=== PATIENT | male | born 1940 | race Caucasian/White ===

== ENCOUNTER 2018-04-21 15:08 | Observation (INO) ==
[2018-04-21] MEDS ORDERED: MORPHINE 4 MG/1 ML VIAL IV PRN (15:36)
[2018-04-21] MEDS ORDERED: NITROGLYCERIN 2% OINT 1 INCH/GM PACK TOP STA (15:36)
[2018-04-21] MEDS ORDERED: ASPIRIN 325 MG TABLET PO STA (15:36)
[2018-04-21] MEDS ORDERED: ONDANSETRON 4 MG/2 ML VIAL IV PRN ×2 (15:36→19:57)
[2018-04-21] MEDS ORDERED: ENOXAPARIN 100 MG/ML SYRINGE SUBCUT STA (15:36)
[2018-04-21 16:03] LABS: Basophils # 0.1 10*3/uL (0.0-0.2); Basophils % 0.8 % (0.0-0.8); Eosinophils # 0.4 10*3/uL (0.0-0.87); Eosinophils % 5.1 % (0.00-10.9); Hematocrit 42.5 VOL% (42.0-52.0); Hemoglobin 13.9 GM/DL (14.0-18.0); Immature Granulocytes % 0.8 %; Immature Granulocytes Absolute 0.06 #; Lymphocytes # 1.5 10*3/uL (1.4-4.0); Lymphocytes % 21.1 % (21.2-54.2); Mean Corpuscular HGB Conc 32.7 GM/DL (32-36); Mean Corpuscular Hemoglobin 29 PG (27-34); Mean Corpuscular Volume 87.1 FL (87-102); Monocytes # 0.7 10*3/uL (0.11-0.8); Monocytes % 9.3 % (1.7-12.7); Neutrophils # 4.4 10*3/uL (1.4-7.4); Neutrophils % 62.9 % (38.7-73.9); Platelet Count 202 T/CUMM (130-400); Red Blood Count 4.88 MC/CUMM (3.8-5.5); Red Cell Distribution Width 13.6 % (9.3-17.3); White Blood Count 7.1 T/CUMM (4-12)
[2018-04-21 16:17] LABS: PT Patient Result 10.7 SECS; Partial Thromboplastin Time 25.3 SECS (0-40)
[2018-04-21 16:34] LABS: Albumin 3.3 G/DL (3.4-5.0); Bilirubin,Total 0.4 MG/DL (0.2-1.0); Calcium 9.5 MG/DL (8.5-10.1); Osmolality,Calculated 286.1 MOS/KG (273-304); Potassium 4.4 MMOL/L (3.5-5.1); Total Protein 6.6 G/DL (6.4-8.3)
[2018-04-21] MEDS ORDERED: DEXTROSE 50% 25 GM/50 ML VIAL IV PRN (19:57)
[2018-04-21] MEDS ORDERED: GLUCAGON 1 MG VIAL IM PRN (19:57)
[2018-04-21] MEDS ORDERED: ACETAMINOPHEN 325 MG TABLET PO PRN (19:57)
[2018-04-21] MEDS: SODIUM CHLORIDE 0.9% 1,000 ML IV SCH (22:04)
[2018-04-21] MEDS: DOCUSATE SODIUM 100 MG CAPSULE PO SCH (22:04)
[2018-04-21] MEDS: INSULIN REGULAR 100 UNIT/ML SUBCUT SCH (22:04)
[2018-04-22] MEDS: SODIUM CHLORIDE 0.9% 1,000 ML IV SCH ×2 (04:38→06:08)
[2018-04-22] MEDS: PANTOPRAZOLE 40 MG TABLET PO SCH (09:44)
[2018-04-22] MEDS: CARVEDILOL 3.125 MG TABLET PO SCH ×2 (09:44→20:17)
[2018-04-22] MEDS: DOCUSATE SODIUM 100 MG CAPSULE PO SCH ×2 (09:44→20:17)
[2018-04-22] MEDS: INSULIN REGULAR 100 UNIT/ML SUBCUT SCH ×4 (09:45→20:18)
[2018-04-22] MEDS: glipiZIDE 10 MG TABLET PO SCH ×2 (09:45→20:18)
[2018-04-22 10:46] LABS: Risk Ratio 3.81; VLDL CHOLESTEROL 27.8 MG/DL
[2018-04-22] MEDS: NITROGLYCERIN 2% OINT 1 INCH/GM PACK TOP SCH ×3 (11:53→23:57)
[2018-04-22] MEDS ORDERED: diphenhydrAMINE CAP 50 MG CAPSULE PO ONE (13:48)
[2018-04-22] MEDS ORDERED: DIAZEPAM 5 MG TABLET PO ONE (13:48)
[2018-04-22] MEDS ORDERED: POTASSIUM CHLORIDE RIDER 10 MEQ in PREMIX 1 EACH IV PRN (14:25)
[2018-04-22] MEDS ORDERED: MAGNESIUM SULF RIDER 2 GM in PREMIX 1 EACH IV PRN (14:25)
[2018-04-22] MEDS ORDERED: LIDOCAINE 1% 20 ML VIAL ONE (16:24)
[2018-04-22] MEDS ORDERED: MIDAZOLAM 2 MG/2 ML VIAL ONE (17:44)
[2018-04-22] MEDS ORDERED: fentaNYL 100 MCG/2 ML VIAL ONE (17:44)
[2018-04-22] MEDS ORDERED: HEPARIN 5,000 UNIT/1 ML VIAL ONE (17:51)
[2018-04-22] MEDS ORDERED: ADENOSINE 90 MG/30 ML VIAL IV ONE (18:05)
[2018-04-22] MEDS ORDERED: ZALEPLON 5 MG CAPSULE PO PRN (18:49)
[2018-04-22] MEDS: ACETAMINOPHEN 325 MG TABLET PO SCH ×2 (20:17→20:19)
[2018-04-22] MEDS: GABAPENTIN 100 MG CAPSULE PO SCH ×3 (20:17→20:22)
[2018-04-22] MEDS: traMADol 50 MG TABLET PO SCH ×2 (20:18→20:19)
[2018-04-22] MEDS ORDERED: QUINAPRIL 5 MG TABLET PO SCH (21:00)
[2018-04-22] MEDS ORDERED: ASPIRIN EC 325 MG TABLET PO SCH (21:00)
[2018-04-22] MEDS ORDERED: SIMVASTATIN 20 MG TABLET PO SCH (21:00)
[2018-04-23 05:54] LABS: Calcium 8.7 MG/DL (8.5-10.1); Osmolality,Calculated 280.3 MOS/KG (273-304); Potassium 4.3 MMOL/L (3.5-5.1)
[2018-04-23] MEDS: NITROGLYCERIN 2% OINT 1 INCH/GM PACK TOP SCH (06:16)
[2018-04-23] MEDS: INSULIN REGULAR 100 UNIT/ML SUBCUT SCH ×2 (08:43→12:49)
[2018-04-23] MEDS: glipiZIDE 10 MG TABLET PO SCH (10:28)
[2018-04-23] MEDS: GABAPENTIN 100 MG CAPSULE PO SCH (10:28)
[2018-04-23] MEDS: DOCUSATE SODIUM 100 MG CAPSULE PO SCH (10:28)
[2018-04-23] MEDS: PANTOPRAZOLE 40 MG TABLET PO SCH (10:28)
[2018-04-23] MEDS: traMADol 50 MG TABLET PO SCH (10:29)
[2018-04-23] MEDS: CARVEDILOL 3.125 MG TABLET PO SCH (10:29)
[2018-04-23] MEDS: ACETAMINOPHEN 325 MG TABLET PO SCH (10:29)
[2018-04-23] MEDS ORDERED: SIMVASTATIN 20 MG TABLET PO SCH (11:55)
[2018-04-23 12:05] VITALS: BP 121/66
== END 2018-04-23 13:10 | disposition home or self-care (01) ==
LOC: N.ED 15:08 → N.EDINP 15:08 → N.TELEN 22:09
PROVIDERS: ADMIT Family Medicine; ATTEND Family Medicine
PROC: CLCCHCL (ICD-10-PCS; 2018-04-22 15:15)

== ENCOUNTER 2019-02-24 15:01 | Inpatient (IN) ==
[2019-02-24] MEDS ORDERED: HYDROmorphone 2 MG/1 ML VIAL IV STA (15:25)
[2019-02-24] MEDS ORDERED: ONDANSETRON 4 MG/2 ML VIAL IV STA (15:25)
[2019-02-24 15:33] LABS: Basophils # 0.1 10*3/uL (0.0-0.2); Basophils % 1.1 % (0.0-0.8); Eosinophils # 0.4 10*3/uL (0.0-0.87); Eosinophils % 6.7 % (0.00-10.9); Hematocrit 45.5 VOL% (42.0-52.0); Hemoglobin 14.5 GM/DL (14.0-18.0); Immature Granulocytes % 1.2 %; Immature Granulocytes Absolute 0.08 #; Lymphocytes # 1.3 10*3/uL (1.4-4.0); Lymphocytes % 19.3 % (21.2-54.2); Mean Corpuscular HGB Conc 31.9 GM/DL (32-36); Mean Platelet Volume 10.4 FL (9.6-12.0); Monocytes % 10.9 % (1.7-12.7); Neutrophils % 60.8 % (38.7-73.9); Platelet Count 220 T/CUMM (130-400); Red Blood Count 5.23 MC/CUMM (3.8-5.5); Red Cell Distribution Width 13.2 % (9.3-17.3); White Blood Count 6.5 T/CUMM (4-12)
[2019-02-24 15:56] LABS: Albumin 3.8 G/DL (3.4-5.0); Bilirubin,Total 0.5 MG/DL (0.2-1.0); Calcium 9.1 MG/DL (8.5-10.1); Osmolality,Calculated 288.1 MOS/KG (273-304); Total Protein 6.9 G/DL (6.4-8.3)
[2019-02-24 17:22] LABS: Apearance,Urine CLEAR (Clear); Bilirubin,Urine Negative (Negative); Blood, Urine Negative (Negative); Glucose,Urine (UA) Negative (Negative); Ketones,Urine Negative (Negative); Mucus,Urine Occasional /LPF (Occasional); Nitrite,Urine Negative (Negative); Protein,Urine Negative; RBC,Urine <1 /HPF (0-4); Urine Color Yellow (Yellow); Urine Specific Gravity 1.054 (1.001-1.035); Urine Urobilinogen < 2.0 EU/DL (0.2-1.0); WBC,Urine 1 /HPF (0-6)
[2019-02-24] MEDS ORDERED: GLUCAGON 1 MG VIAL IM PRN (19:56)
[2019-02-24] MEDS ORDERED: DEXTROSE 50% 25 GM/50 ML VIAL IV PRN (19:56)
[2019-02-24] MEDS ORDERED: ACETAMINOPHEN 325 MG TABLET PO PRN (19:56)
[2019-02-24] MEDS ORDERED: ONDANSETRON 4 MG/2 ML VIAL IV PRN (19:56)
[2019-02-24] MEDS ORDERED: MORPHINE 4 MG/1 ML VIAL IV PRN (19:56)
[2019-02-24] MEDS ORDERED: ENOXAPARIN 40 MG/0.4 ML SYRINGE SUBCUT SCH (21:00)
[2019-02-24] MEDS ORDERED: ASPIRIN EC 81 MG TABLET PO SCH (21:00)
[2019-02-24 22:00] LABS: Troponin I 12.7 NG/ML (0.00-0.045)
[2019-02-24] MEDS: metFORMIN 500 MG TABLET PO SCH (22:17)
[2019-02-24] MEDS: DOCUSATE SODIUM 100 MG CAPSULE PO SCH (22:17)
[2019-02-24] MEDS: QUINAPRIL 5 MG TABLET PO SCH (22:17)
[2019-02-24] MEDS: CARVEDILOL 3.125 MG TABLET PO SCH (22:17)
[2019-02-24] MEDS: SIMVASTATIN 20 MG TABLET PO SCH (22:18)
[2019-02-24] MEDS ORDERED: ENOXAPARIN 100 MG/ML SYRINGE SUBCUT SCH (22:30)
[2019-02-24] MEDS: INSULIN REGULAR 100 UNIT/ML SUBCUT SCH (23:16)
[2019-02-24] MEDS ORDERED: ASPIRIN CHEW 81 MG TABLET PO ONE (23:21)
[2019-02-25] MEDS: NITROGLYCERIN 2% OINT 1 INCH/GM PACK TOP SCH ×5 (00:13→18:36)
[2019-02-25] MEDS: INSULIN REGULAR 100 UNIT/ML SUBCUT SCH ×4 (01:52→18:36)
[2019-02-25] MEDS: SODIUM CHLORIDE 0.9% 1,000 ML IV SCH ×5 (03:30→23:23)
[2019-02-25 04:58] LABS: Basophils # 0.1 10*3/uL (0.0-0.2); Eosinophils # 0.4 10*3/uL (0.0-0.87); Eosinophils % 5.5 % (0.00-10.9); Hematocrit 41.3 VOL% (42.0-52.0); Hemoglobin 12.9 GM/DL (14.0-18.0); Immature Granulocytes % 1.4 %; Immature Granulocytes Absolute 0.11 #; Lymphocytes # 1.4 10*3/uL (1.4-4.0); Lymphocytes % 18.1 % (21.2-54.2); Mean Corpuscular HGB Conc 31.2 GM/DL (32-36); Mean Corpuscular Volume 88.2 FL (87-102); Mean Platelet Volume 10.9 FL (9.6-12.0); Monocytes % 11.1 % (1.7-12.7); Neutrophils % 62.9 % (38.7-73.9); Platelet Count 206 T/CUMM (130-400); Red Blood Count 4.68 MC/CUMM (3.8-5.5); Red Cell Distribution Width 13.2 % (9.3-17.3); White Blood Count 7.8 T/CUMM (4-12)
[2019-02-25 05:34] LABS: Albumin 3.3 G/DL (3.4-5.0); Bilirubin,Total 0.5 MG/DL (0.2-1.0); Calcium 8.8 MG/DL (8.5-10.1); Risk Ratio 4.7; Total Protein 6.3 G/DL (6.4-8.3); VLDL CHOLESTEROL 34.6 MG/DL
[2019-02-25] MEDS ORDERED: TIROFIBAN IV ONE (07:47)
[2019-02-25 08:09] LABS: CKMB % 5.9 %
[2019-02-25 08:11] LABS: Troponin I 58.7 NG/ML (0.00-0.045)
[2019-02-25] MEDS ORDERED: diphenhydrAMINE CAP 25 MG CAPSULE PO ONE (08:26)
[2019-02-25] MEDS ORDERED: POTASSIUM CHLORIDE RIDER 10 MEQ in PREMIX 1 EACH IV PRN (08:26)
[2019-02-25] MEDS ORDERED: MAGNESIUM SULF RIDER 2 GM in PREMIX 1 EACH IV PRN (08:26)
[2019-02-25] MEDS ORDERED: DIAZEPAM 5 MG TABLET PO ONE (08:26)
[2019-02-25] MEDS ORDERED: TIROFIBAN 5,000 MCG/100 ML PREMIX IV SCH (08:30)
[2019-02-25] MEDS ORDERED: ASPIRIN CHEW 81 MG TABLET PO ONE (09:05)
[2019-02-25] MEDS: DOCUSATE SODIUM 100 MG CAPSULE PO SCH ×2 (09:36→23:21)
[2019-02-25] MEDS: CARVEDILOL 3.125 MG TABLET PO SCH ×2 (09:37→23:22)
[2019-02-25] MEDS: PANTOPRAZOLE 40 MG TABLET PO SCH (09:37)
[2019-02-25] MEDS: metFORMIN 500 MG TABLET PO SCH (09:52)
[2019-02-25] MEDS ORDERED: LIDOCAINE 1% 20 ML VIAL ONE (10:36)
[2019-02-25] MEDS ORDERED: fentaNYL 100 MCG/2 ML VIAL ONE (10:50)
[2019-02-25] MEDS ORDERED: MIDAZOLAM 2 MG/2 ML VIAL ONE (10:50)
[2019-02-25] MEDS ORDERED: HEPARIN 5,000 UNIT/1 ML VIAL ONE (11:09)
[2019-02-25] MEDS ORDERED: HYDROmorphone 2 MG/1 ML VIAL ONE (11:31)
[2019-02-25] MEDS ORDERED: TICAGRELOR 90 MG TABLET ONE (11:47)
[2019-02-25] MEDS ORDERED: GLUCAGON 1 MG VIAL IM PRN (13:20)
[2019-02-25] MEDS ORDERED: DEXTROSE 50% 25 GM/50 ML VIAL IV PRN (13:20)
[2019-02-25 13:49] LABS: CKMB % 5.1 %
[2019-02-25 13:50] LABS: Troponin I 54.8 NG/ML (0.00-0.045)
[2019-02-25] MEDS ORDERED: diphenhydrAMINE 50 MG/1 ML VIAL IV PRN (16:47)
[2019-02-25] MEDS: HYDROmorphone 2 MG/1 ML VIAL IV PRN ×2 (17:11→22:43)
[2019-02-25] MEDS ORDERED: GABAPENTIN 100 MG CAPSULE PO SCH (17:30)
[2019-02-25] MEDS: ACETAMINOPHEN 325 MG TABLET PO SCH ×2 (17:43→23:22)
[2019-02-25 21:08] LABS: CKMB % 3.8 %
[2019-02-25 21:09] LABS: Troponin I 26.6 NG/ML (0.00-0.045)
[2019-02-25] MEDS: TICAGRELOR 90 MG TABLET PO SCH (21:16)
[2019-02-25] MEDS: QUINAPRIL 5 MG TABLET PO SCH (23:21)
[2019-02-25] MEDS: SIMVASTATIN 20 MG TABLET PO SCH (23:23)
[2019-02-26] MEDS: NITROGLYCERIN 2% OINT 1 INCH/GM PACK TOP SCH ×3 (02:23→12:14)
[2019-02-26 05:24] LABS: Basophils % 0.7 % (0.0-0.8); Eosinophils # 0.3 10*3/uL (0.0-0.87); Eosinophils % 4.1 % (0.00-10.9); Hematocrit 38.9 VOL% (42.0-52.0); Hemoglobin 12.3 GM/DL (14.0-18.0); Immature Granulocytes Absolute 0.06 #; Lymphocytes # 0.6 10*3/uL (1.4-4.0); Lymphocytes % 10.3 % (21.2-54.2); Mean Corpuscular HGB Conc 31.6 GM/DL (32-36); Mean Platelet Volume 10.8 FL (9.6-12.0); Monocytes % 8.4 % (1.7-12.7); Neutrophils % 75.5 % (38.7-73.9); Platelet Count 180 T/CUMM (130-400); Red Blood Count 4.47 MC/CUMM (3.8-5.5); Red Cell Distribution Width 13.2 % (9.3-17.3); White Blood Count 6.1 T/CUMM (4-12)
[2019-02-26] MEDS: INSULIN REGULAR 100 UNIT/ML SUBCUT SCH ×4 (05:28→18:05)
[2019-02-26] MEDS: HYDROmorphone 2 MG/1 ML VIAL IV PRN (05:31)
[2019-02-26 05:46] LABS: Calcium 8.2 MG/DL (8.5-10.1); Osmolality,Calculated 280.4 MOS/KG (273-304)
[2019-02-26 05:51] LABS: CKMB % 2.9 %
[2019-02-26] MEDS: PANTOPRAZOLE 40 MG TABLET PO SCH (09:25)
[2019-02-26] MEDS: ASPIRIN CHEW 81 MG TABLET PO SCH (09:25)
[2019-02-26] MEDS: TICAGRELOR 90 MG TABLET PO SCH ×2 (09:25→21:32)
[2019-02-26] MEDS: DOCUSATE SODIUM 100 MG CAPSULE PO SCH ×2 (09:25→21:32)
[2019-02-26] MEDS: ACETAMINOPHEN 325 MG TABLET PO SCH ×2 (09:26→21:34)
[2019-02-26] MEDS: CARVEDILOL 3.125 MG TABLET PO SCH ×2 (09:26→21:33)
[2019-02-26] MEDS: QUINAPRIL 5 MG TABLET PO SCH (21:31)
[2019-02-26] MEDS: SIMVASTATIN 20 MG TABLET PO SCH (21:33)
[2019-02-27] MEDS: INSULIN REGULAR 100 UNIT/ML SUBCUT SCH ×2 (00:51→05:35)
[2019-02-27 08:36] VITALS: BP 132/63
[2019-02-27] MEDS: ASPIRIN CHEW 81 MG TABLET PO SCH (09:08)
[2019-02-27] MEDS: TICAGRELOR 90 MG TABLET PO SCH (09:08)
[2019-02-27] MEDS: DOCUSATE SODIUM 100 MG CAPSULE PO SCH (09:10)
[2019-02-27] MEDS: PANTOPRAZOLE 40 MG TABLET PO SCH (09:10)
[2019-02-27] MEDS: ACETAMINOPHEN 325 MG TABLET PO SCH (09:10)
[2019-02-27] MEDS: CARVEDILOL 3.125 MG TABLET PO SCH (09:10)
== END 2019-02-27 10:58 | disposition home or self-care (01) | DRG 247 ==
LOC: N.ED 15:01 → N.EDINP 17:12 → N.TELEN 19:07
PROVIDERS: ADMIT Family Medicine; ATTEND Family Medicine
PROC: CLCCHCL (ICD-10-PCS; 2019-02-25 11:15)

== ENCOUNTER 2019-03-06 21:23 | Observation (INO) ==
[2019-03-06] MEDS ORDERED: ONDANSETRON 4 MG/2 ML VIAL IV STA (21:46)
[2019-03-06] MEDS ORDERED: ASPIRIN 325 MG TABLET PO STA (21:46)
[2019-03-06] MEDS ORDERED: MORPHINE 4 MG/1 ML VIAL IV STA (21:46)
[2019-03-06] MEDS ORDERED: ENOXAPARIN 100 MG/ML SYRINGE SUBCUT STA (21:46)
[2019-03-06] MEDS ORDERED: NITROGLYCERIN 2% OINT 1 INCH/GM PACK TOP STA (21:46)
[2019-03-06] MEDS ORDERED: ENOXAPARIN 30 MG/0.3 ML SYRINGE IV STA (21:46)
[2019-03-06 22:03] LABS: Basophils # 0.1 10*3/uL (0.0-0.2); Basophils % 1.2 % (0.0-0.8); Eosinophils # 0.5 10*3/uL (0.0-0.87); Eosinophils % 6.6 % (0.00-10.9); Hematocrit 42.3 VOL% (42.0-52.0); Hemoglobin 13.5 GM/DL (14.0-18.0); Immature Granulocytes Absolute 0.23 #; Lymphocytes # 1.6 10*3/uL (1.4-4.0); Lymphocytes % 21.3 % (21.2-54.2); Mean Corpuscular HGB Conc 31.9 GM/DL (32-36); Mean Corpuscular Volume 85.6 FL (87-102); Mean Platelet Volume 10.4 FL (9.6-12.0); Monocytes % 10.5 % (1.7-12.7); Neutrophils % 57.4 % (38.7-73.9); Platelet Count 287 T/CUMM (130-400); Red Blood Count 4.94 MC/CUMM (3.8-5.5); Red Cell Distribution Width 13.2 % (9.3-17.3); White Blood Count 7.6 T/CUMM (4-12)
[2019-03-06] MEDS ORDERED: MIDAZOLAM 2 MG/2 ML VIAL ONE (22:11)
[2019-03-06] MEDS ORDERED: fentaNYL 100 MCG/2 ML VIAL ONE (22:11)
[2019-03-06 22:22] LABS: PT Patient Result 11.2 SECS
[2019-03-06 22:23] LABS: Albumin 3.4 G/DL (3.4-5.0); Bilirubin,Total 0.4 MG/DL (0.2-1.0); Osmolality,Calculated 284.7 MOS/KG (273-304); Total Protein 6.7 G/DL (6.4-8.3)
[2019-03-06 22:25] LABS: Troponin I 0.203 NG/ML (0.00-0.045)
[2019-03-06] MEDS ORDERED: LIDOCAINE 1% 20 ML VIAL ONE (22:25)
[2019-03-06] MEDS ORDERED: ACETAMINOPHEN 325 MG TABLET PO PRN (22:41)
[2019-03-06] MEDS ORDERED: DEXTROSE 50% 25 GM/50 ML VIAL IV PRN (22:41)
[2019-03-06] MEDS ORDERED: MAGNESIUM SULF RIDER 4 GM in PREMIX 1 EACH IV PRN (22:41)
[2019-03-06] MEDS ORDERED: ONDANSETRON 4 MG/2 ML VIAL IV PRN (22:41)
[2019-03-06] MEDS ORDERED: ZALEPLON 5 MG CAPSULE PO PRN (22:41)
[2019-03-06] MEDS ORDERED: MAGNESIUM SULF RIDER 2 GM in PREMIX 1 EACH IV PRN (22:41)
[2019-03-06] MEDS ORDERED: GLUCAGON 1 MG VIAL IM PRN (22:41)
[2019-03-06] MEDS ORDERED: ENOXAPARIN 40 MG/0.4 ML SYRINGE SUBCUT SCH (23:00)
[2019-03-07] MEDS: INSULIN REGULAR 100 UNIT/ML SUBCUT SCH ×3 (04:49→11:28)
[2019-03-07] MEDS ORDERED: glipiZIDE 10 MG TABLET PO SCH (07:30)
[2019-03-07] MEDS ORDERED: CARVEDILOL 3.125 MG TABLET PO SCH (08:00)
[2019-03-07 08:59] VITALS: BP 107/46
[2019-03-07] MEDS: metFORMIN 500 MG TABLET PO SCH ×2 (08:59→09:09)
[2019-03-07] MEDS ORDERED: PANTOPRAZOLE 40 MG TABLET PO SCH (09:00)
[2019-03-07] MEDS ORDERED: ASPIRIN CHEW 81 MG TABLET PO SCH (09:00)
[2019-03-07] MEDS ORDERED: ENALAPRIL 5 MG TABLET PO SCH (09:00)
[2019-03-07] MEDS ORDERED: TICAGRELOR 90 MG TABLET PO SCH (09:00)
[2019-03-07] MEDS ORDERED: ACETAMINOPHEN 325 MG TABLET PO PRN (10:34)
[2019-03-07] MEDS ORDERED: ACETAMINOPHEN 325 MG TABLET PO SCH (11:00)
[2019-03-07] MEDS ORDERED: SERTRALINE 25 MG TABLET PO SCH (11:00)
[2019-03-07] MEDS ORDERED: GABAPENTIN 100 MG CAPSULE PO SCH (11:00)
[2019-03-07] MEDS ORDERED: ENOXAPARIN 40 MG/0.4 ML SYRINGE SUBCUT SCH (21:00)
[2019-03-07] MEDS ORDERED: SIMVASTATIN 20 MG TABLET PO SCH (21:00)
[2019-03-09] MEDS ORDERED: SERTRALINE 25 MG TABLET PO SCH (21:00)
== END 2019-03-07 12:22 | disposition home or self-care (01) ==
LOC: N.CC 21:23 → N.ED 21:23 → N.CC 22:50
PROVIDERS: ADMIT Internal Medicine Cardiovascular Disease; ATTEND Internal Medicine Cardiovascular Disease

== ENCOUNTER 2020-03-30 00:51 | Observation (INO) ==
[2020-03-30] MEDS ORDERED: NITROGLYCERIN 2% OINT 1 INCH/GM PACK TOP STA (01:04)
[2020-03-30] MEDS ORDERED: ONDANSETRON 4 MG/2 ML VIAL IV STA (01:04)
[2020-03-30] MEDS ORDERED: ASPIRIN 325 MG TABLET PO STA (01:04)
[2020-03-30] MEDS ORDERED: ORPHENADRINE 60 MG/2 ML VIAL IV STA (01:07)
[2020-03-30] MEDS ORDERED: KETOROLAC 30 MG/1 ML VIAL IV STA (01:07)
[2020-03-30 01:20] LABS: Basophils # 0.1 10*3/uL (0.0-0.2); Basophils % 1.3 % (0.0-0.8); Eosinophils # 0.5 10*3/uL (0.0-0.87); Eosinophils % 5.9 % (0.00-10.9); Hematocrit 44.5 VOL% (42.0-52.0); Hemoglobin 14.3 GM/DL (14.0-18.0); Immature Granulocytes % 2.3 %; Immature Granulocytes Absolute 0.21 #; Lymphocytes # 1.9 10*3/uL (1.4-4.0); Lymphocytes % 20.9 % (21.2-54.2); Mean Corpuscular HGB Conc 32.1 GM/DL (32-36); Mean Corpuscular Volume 85.9 FL (87-102); Mean Platelet Volume 10.3 FL (9.6-12.0); Monocytes % 9.9 % (1.7-12.7); Neutrophils % 59.7 % (38.7-73.9); Platelet Count 247 T/CUMM (130-400); Red Blood Count 5.18 MC/CUMM (3.8-5.5); Red Cell Distribution Width 13.6 % (9.3-17.3)
[2020-03-30 01:33] LABS: Apearance,Urine CLEAR (Clear); Bilirubin,Urine Negative (Negative); Blood, Urine Negative (Negative); Calcium Oxalate Crystals,Urine Few /HPF (Few); Glucose,Urine (UA) 150 mg/dL (Negative); Ketones,Urine 5 mg/dL (Negative); Mucus,Urine Occasional /LPF (Occasional); Nitrite,Urine Negative (Negative); Protein,Urine Negative; RBC,Urine 4 /HPF (0-4); Urine Color Yellow (Yellow); Urine Specific Gravity 1.024 (1.001-1.035); WBC,Urine 2 /HPF (0-6)
[2020-03-30 01:34] LABS: INR 0.9; PT Patient Result 10.1 SECS (9.8-11.9); Partial Thromboplastin Time 25.9 SECS (23.9-33.8)
[2020-03-30 01:43] LABS: Alanine Aminotransferase 24 U/L (16-61); Albumin 3.6 G/DL (3.4-5.0); Alkaline Phosphatase 85 U/L (45-117); Aspartate Amino Transferase 12 U/L (0-37); Bilirubin,Total < 0.39 MG/DL (0.2-1.0); Blood Urea Nitrogen 18 MG/DL (7-18); Calcium 9.4 MG/DL (8.5-10.1); Estimated Glom Filtration Rate 66 ML/MIN; Ferritin 26.1 ng/ml (26-388); Glucose 279 MG/DL (74-106); Total Protein 7.4 G/DL (6.4-8.3); Troponin I < 0.015 NG/ML (0.00-0.045)
[2020-03-30 01:59] LABS: Barbiturates Screen,Urine Negative (Negative); Benzodiazepines Screen,Urine Negative (Negative); Cannabinoid Screen,Urine Negative (Negative); Opiate Screen,Urine Negative (Negative); Phencyclidine Screen,Urine Negative (Negative)
[2020-03-30] MEDS ORDERED: GLUCAGON 1 MG VIAL IM PRN (02:33)
[2020-03-30] MEDS ORDERED: MORPHINE 4 MG/1 ML VIAL IV PRN (02:33)
[2020-03-30] MEDS ORDERED: ACETAMINOPHEN 325 MG TABLET PO PRN (02:33)
[2020-03-30] MEDS ORDERED: SODIUM CHLORIDE 0.9% 1,000 ML IV SCH (02:33)
[2020-03-30] MEDS ORDERED: ONDANSETRON 4 MG/2 ML VIAL IV PRN (02:33)
[2020-03-30] MEDS ORDERED: DEXTROSE 50% 25 GM/50 ML VIAL IV PRN (02:33)
[2020-03-30] MEDS: INSULIN REGULAR 100 UNIT/ML SUBCUT SCH ×2 (05:29→12:33)
[2020-03-30 05:35] LABS: Basophils # 0.1 10*3/uL (0.0-0.2); Basophils % 1.3 % (0.0-0.8); Eosinophils # 0.5 10*3/uL (0.0-0.87); Eosinophils % 5.9 % (0.00-10.9); Hematocrit 40.9 VOL% (42.0-52.0); Hemoglobin 12.9 GM/DL (14.0-18.0); Immature Granulocytes % 3.8 %; Immature Granulocytes Absolute 0.29 #; Lymphocytes # 1.9 10*3/uL (1.4-4.0); Lymphocytes % 24.8 % (21.2-54.2); Mean Corpuscular HGB Conc 31.5 GM/DL (32-36); Mean Corpuscular Volume 86.7 FL (87-102); Mean Platelet Volume 10.4 FL (9.6-12.0); Monocytes % 10.4 % (1.7-12.7); Neutrophils % 53.8 % (38.7-73.9); Platelet Count 244 T/CUMM (130-400); Red Blood Count 4.72 MC/CUMM (3.8-5.5); Red Cell Distribution Width 13.7 % (9.3-17.3); White Blood Count 7.6 T/CUMM (4-12)
[2020-03-30 06:05] LABS: Bilirubin,Total 0.5 MG/DL (0.2-1.0); Calcium 9.2 MG/DL (8.5-10.1); Osmolality,Calculated 283.7 MOS/KG (273-304); Risk Ratio 5.09; Total Protein 6.3 G/DL (6.4-8.3)
[2020-03-30] MEDS ORDERED: metFORMIN 500 MG TABLET PO SCH (08:00)
[2020-03-30] MEDS ORDERED: carvediloL 3.125 MG TABLET PO SCH (08:00)
[2020-03-30] MEDS ORDERED: glipiZIDE 10 MG TABLET PO SCH (08:00)
[2020-03-30] MEDS ORDERED: TICAGRELOR 90 MG TABLET PO SCH (09:00)
[2020-03-30] MEDS ORDERED: DOCUSATE SODIUM 100 MG CAPSULE PO SCH (09:00)
[2020-03-30] MEDS ORDERED: PANTOPRAZOLE 40 MG VIAL IV SCH (09:00)
[2020-03-30] MEDS ORDERED: carvediloL 3.125 MG TABLET PO ONE (10:43)
[2020-03-30] MEDS ORDERED: carvediloL 6.25 MG TABLET PO SCH (10:44)
[2020-03-30] MEDS ORDERED: APIXABAN 2.5 MG TABLET PO SCH (11:00)
[2020-03-30 12:27] VITALS: BP 113/56
[2020-03-30] MEDS ORDERED: ASPIRIN EC 81 MG TABLET PO SCH (21:00)
[2020-03-30] MEDS ORDERED: ENALAPRIL 5 MG TABLET PO SCH (21:00)
[2020-03-30] MEDS ORDERED: SIMVASTATIN 20 MG TABLET PO SCH (21:00)
== END 2020-03-30 13:00 | disposition home or self-care (01) ==
LOC: N.ED 00:51 → N.EDINP 00:51 → N.TELES 02:41
PROVIDERS: ADMIT Family Medicine; ATTEND Family Medicine